=== PATIENT | female | born 1980 | race Caucasian/White ===

== ENCOUNTER 2019-05-21 05:42 | Inpatient (IN) | payer BC, SELFPAY ==
--- NOTE | 2019-05-05 15:11 | PC.NURSE ---
VERIFIED WITH OR SCHEDULE AND PATIENT--C/S WITH BILATERAL TUBAL LIGATION ON 05/28/19 AT 1200 PATIENT GIVEN REQUISITION FOR LAB DRAW ON 05/27/19
[2019-05-21] VITALS (61 sets, daily range): BP systolic 103–148; BP diastolic 68–96; PULSE 74–227; RESP 16–20; TEMP 36.1–37.3; O2SAT 97–100; BMI 34.7
[2019-05-21] MEDS: LACTATED RINGERS 1,000 ML 125 ML IV CONT (06:30)
--- NOTE | 2019-05-21 06:37 | PM.IMHP ---
H&P: HPI History of Present Illness Chief complaint: Contraction Narrative: Kathya Waters is a 38 year old female at 38w6d who presents in labor. Her is complicated by history of 2 prior c-sections. Her cervix was found to be 5 cm with a bulging bag of water. She endorses good FM. She denies any vaignal bleeding or LOF. Review of Systems Review of Systems: All systems reviewed & are unremarkable except as noted in HPI and below PMFSH Family History Family History (Updated 05/05/19 @ 14:55 by Jeramy Andino RN) Father High cholesterol Mother High cholesterol Grandparent Acute myocardial infarction Grandparent Heart disease Social History Social History Substance use: never Spiritual care concerns: No Meds Home Medications and Allergies Home Medications Medication Instructions Recorded Confirmed Type PNV cmb#95-ferrous fumarate-FA 1 tablet PO DAILY 05/05/19 05/05/19 History [] Allergies Allergy/AdvReac Type Severity Reaction Status Date / Time Penicillins Allergy Mild HIVES Verified 05/05/19 14:51 Vital Signs Vital Signs - 24 hr 05/21/19 06:31 Pulse Rate 104 H Blood Pressure 148/96 H Exam Const: General: comfortable and no acute distress Resp: Effort & Inspection: normal respiratory effort Auscultation: clear to auscultation bilaterally Cardio: Rate: regular rate Rhythm: regular rhythm GI: GI Palp: Yes Soft to palpation and No Guarding due to palpation present (GI) Auscultation: normal bowel sounds Other: Gravid uterus, size equal to dates : Manual OB Exam: dilated Skin: General skin exam: normal color Extrem: General: normal to inspection Assessment and Plan Assessment and plan (1) History of delivery affecting : Code(s): O34.219 - Maternal care for unspecified type scar from previous delivery Status: Acute Assessment and Plan: h/o 2 prior c/s plan for repeat c/s (2) Supervision of high risk in third trimester: Code(s): O09.93 - Supervision of high risk , unspecified, third trimester Status: Acute Additional Plan at 38w6d presents in labor ahuja IUP vertex FHT category 1 cvx 5cm
[2019-05-21 06:42] LABS: Basophils Percent Auto 0.2 % (0.2-1.2); Eosinophils Percent Auto 0.1 % (0-4.4); Hematocrit 37.1 % (37.0-47.0); Hemoglobin 12.5 g/dL (12.0-15.0); Immature Granulocyte Absolute 0.04 K/mm3 (0.00-0.031); Immature Granulocyte Percent A 0.4 % (0-0.5); Lymphocytes Absolute Auto 1.37 K/mm3 (0.9-3.2); Lymphocytes Percent Auto 12.9 % (18.3-44.2); Mean Corpuscular HGB Conc 33.7 g/dl (32-36); Mean Corpuscular Hemoglobin 31.6 pg (26-34); Mean Corpuscular Volume 93.7 fl (80-100); Monocytes Absolute Auto 0.5 K/mm3 (0.1-0.6); Monocytes Percent Auto 4.3 % (2.6-8.5); Neutrophils Absolute Auto 8.7 K/mm3 (1.3-6.7); Neutrophils Percent Auto 82.1 % (45.5-73.1); Platelet Count Result 167 k/mm3 (150-375); Red Blood Count 3.96 M/mm3 (4.2-5.4); Red Cell Distribution Width 13.4 % (11.5-14.5); White Blood Count 10.6 K/mm3 (4.5-10.0)
--- NOTE | 2019-05-21 06:44 | WPDANESEPPF ---
Anes - Initial Pre Proc Eval Procedure: Operation Date: 05/28/19 12:00 Proposed Procedures p Repeat Section with Bilateral Tubal Sterilization - Medhat Marie MD Date/Time: 05/21/19 06:44 Surgeon: Medhat Marie MD Pre Op Diagnosis: Contraction Patient Data Age: 38 Gender: F Height: Weight: Last Vital Signs Pulse 104 H 05/21/19 06:31 BP 148/96 H 05/21/19 06:31 Allergies Allergy/AdvReac Type Severity Reaction Status Date / Time Penicillins Allergy Mild HIVES Verified 05/05/19 14:51 Home Medications Medication Instructions Recorded Confirmed Type PNV cmb#95-ferrous fumarate-FA 1 tablet PO DAILY 05/05/19 05/05/19 History [] Laboratory Tests 05/21/19 05/21/19 05/21/19 06:35 06:35 06:40 WBC 10.6 K/mm3 H K/mm3 (4.5-10.0) RBC 3.96 M/mm3 L M/mm3 (4.2-5.4) Hgb 12.5 g/dL g/dL (12.0-15.0) Hct 37.1 % % (37.0-47.0) MCV 93.7 fl fl (80-100) MCH 31.6 pg pg (26-34) MCHC 33.7 g/dl g/dl (32-36) RDW 13.4 % % (11.5-14.5) Plt Count 167 k/mm3 k/mm3 (150-375) MPV 12.0 fl H fl (7.4-10.4) Immature Gran % (Auto) 0.4 % % (0-0.5) Neut % (Auto) 82.1 % H % (45.5-73.1) Lymph % (Auto) 12.9 % L % (18.3-44.2) [place] % (Auto) 4.3 % % (2.6-8.5) Eos % (Auto) 0.1 % % (0-4.4) Baso % (Auto) 0.2 % % (0.2-1.2) Lymph # (Auto) 1.37 K/mm3 K/mm3 (0.9-3.2) [place] # (Auto) 0.5 K/mm3 K/mm3 (0.1-0.6) Eos # (Auto) 0.0 K/mm3 K/mm3 (0-0.3) Baso # (Auto) 0.0 K/mm3 K/mm3 (0.0-0.1) Abs Immat Gran (auto) 0.04 K/mm3 H K/mm3 (0.00-0.031) Absolute Neuts (auto) 8.7 K/mm3 H K/mm3 (1.3-6.7) Absolute Nucleated RBC 0.0 K/mm3 K/mm3 (0.0-0.012) Nucleated RBC % 0.0 % % (0.0-0.2) Sodium Pending Potassium Pending Chloride Pending Carbon Dioxide Pending BUN Pending Creatinine Pending Estim Creat Clear Calc Pending Estimated GFR Pending Glucose Pending Calcium Pending Total Bilirubin Pending AST Pending ALT Pending Alkaline Phosphatase Pending Total Protein Pending Albumin Pending RPR Pending Patient hx anesthesia problems: none Family hx anesthesia problems: none [facility] Family History Family History Father High cholesterol Mother High cholesterol Grandparent Acute myocardial infarction Grandparent Heart disease Social History Social History Substance use: never Spiritual care concerns: No Anes - Eval Final PreProcedure Day of Procedure 05/21/19 06:44 Patient weight: obese Heart: regular rate and rhythm Lungs: clear to auscultation Airway: Mallampati scale class II Neurological: alert and oriented Last oral intake: >/= 8 hours ASA classification: II Emergent: yes Anesthetic plan: proceed Anesthesia type and monitoring: regional spinal and standard monitoring Informed Consent: The patient's anesthetic plan and its attendant risks and benefits were discussed with the patient/family/POA. Questions were solicited and answers provided to the satisfaction of the patient/family/POA.
[2019-05-21] MEDS: ceFAZolin 2 GM/D5W 50 ML 2 GM/50 ML BAG IVPB (06:52)
[2019-05-21 06:57] LABS: Alanine Aminotransferase 27 U/L (4-35); Albumin Level 3.7 g/dL (3.5-5.1); Alkaline Phosphatase 156 U/L (38-126); Aspartate Amino Transferase 25 U/L (14-36); Bilirubin,Total 0.2 mg/dL (0.2-1.3); Blood Urea Nitrogen 15 mg/dL (7-17); Calcium 9.5 mg/dL (8.4-10.2); Carbon Dioxide 19 mmol/L (22-30); Chloride 101 mmol/L (98-107); Estimated Glomerular Filt Rate > 60; Glucose 97 mg/dL (65-105); Potassium 4.1 mmol/L (3.4-5.0); Sodium 135 mmol/L (137-145)
[2019-05-21 07:53] LABS: Rapid Plasma Reagin Non-Reactive (NonReactive)
--- NOTE | 2019-05-21 08:02 | PM.PROC ---
Procedure Note - Detailed Date of procedure: 05/21/19 Pre-op diagnosis: Contraction labor prior section x2 Post-op diagnosis: same Procedure performed: repeat low transverse section Description of procedure: The patient was taken to the operating room where epidural anesthesia was found to be adequate. She was then prepped and draped in the usual sterile fashion in the dorsal supine position with a leftward tilt. The previous Pfannenstiel incision scar was removed using a scapel. A Pfannenstiel skin incision was then made with the scalpel and carried through to the underlying layer of fascia. Dense adhesions and fibrotic tissue were noted from the subcutaenous layer down to the level of the fascia. The fascia was then incised in the midline and the incision extended laterally with the Chua scissors. The superior aspect of the fascia was then grasped with the Silviano clamps, elevated, and the underlying rectus muscles dissected off bluntly and sharply. Attention was then turned to the inferior aspect of this incision which was unable to be dissected due to dense scar tissue. The rectus muscles were then in the midline, and the peritoneum identified, tented up, and entered sharply with the Metzenbaum scissors. The peritoneal incision was then extended superiorly and inferiorly with good visualization of the bladder. The peritoneum was the level of the inferior fascia was densely adherent. The dissection was not carried down inferiorly. The bladder blade was then inserted. The vesicouterine peritoneum was scarred and a bladder flap was unable to be made. The lower uterine segment incised in a low, transverse fashion with the scalpel. The uterine incision was then extended laterally with the bandage scissors. The bladder blade was removed and the infant?s head delivered atraumatically. The nose and mouth were suctioned with the bulb suction, and the remainder of the infant was delivered atraumatically. The cord was clamped and cut. The infant was handed off to the waiting pediatricians (staff). Cord gasses were sent. The placenta was then removed manually, the uterus exteriorized, and cleared of all clots and debris. The uterine incision was repaired with 0 vicryl in a running fashion. The uterus was returned to the abdomen. The uterus was then reinspected to ensure hemostasis as were all subfascial tissues. The peritoneum was re-approximated with a running 3-0 vicryl. The fascia was reapproximated with 0 vicryl in a running fashion. The subcutaneous tissue was reapproximated using 3-0 Vicryl in a running fashion. The skin was closed with 4-0 vicryl. The patient tolerated the procedure well. Sponge, lap and needle counts were correct times three. The patient was taken to the recovery room in stable condition. Anesthesia: spinal Surgeon: Yonny Wong MD Estimated blood loss (mL): 400 IV fluids (mL): 1,000 Urine output (mL): 150 Drains: No Packing: No Pathology: none sent Complications: No immediate complications Condition: stable Disposition: floor ( ) Findings: dense fibrotic scar tissue from the scin down to the fascia. Inferior fascia and peritoneum densely adherent
--- NOTE | 2019-05-21 09:53 | LDADM ---
This patient, Kathya Waters, was admitted to Labor/Delivery/Recovery 119 on 05/21/19 at 0542. Plans for labor, pain management and were discussed with patient. Patient/family oriented to hospital policies and general routines including ID bracelet, bed and alarms, visiting hours, pain management, procedures, bathroom and other care routines, personal items, smoking policy, room service/diet and guest tray routines, infant security routines, call light, and visiting hours. Patient/Family are encouraged to report perceived risks to care and to ask questions if they do not understand what they are told or what they should do. See OBIX for further documentation.
--- NOTE | 2019-05-21 10:33 | PC.NURSE ---
PT arrived on unit via stretcher accompanied by spouse and and taken to room 278. PT moved to bed via maxi air without difficulty. PT introductions made and plan of care discussed per post op c section, pain management, breast feeding, daily care activities. Welcome packet discussed and pt verbalized understanding of such care.
[2019-05-21] MEDS: IBUPROFEN 600 MG TABLET PO ×2 (14:14→20:35)
[2019-05-21] MEDS: DOCUSATE SODIUM 100 MG CAPSULE PO (14:14)
[2019-05-21] MEDS: SIMETHICONE 80 MG TAB.CHEW PO ×2 (14:14→20:34)
[2019-05-21] MEDS: ACETAMINOPHEN 325 MG TABLET 650 MG PO ×2 (14:15→20:35)
[2019-05-21] MEDS: LANOLIN (LANSINOH) 7.5 GM CREAM 1 APPLIC TOPICAL (14:16)
--- NOTE | 2019-05-21 15:00 | PC.NURSE ---
Consulted with patient, mother reports slight tenderness with nursing on other breast. Reviewed feeding cues, frequencies, duration of feedings, feeding elimination flow sheet, and signs of adequate intake. Demonstrated stimulation techniques to wake for feeding. Assisted with infant to breast. Reviewed positioning/alignment in cross cradle, holding breast in U hold and guided asymmetrical latch on. Discussed rational for each. Within a few attempts, infant was able to latch correctly. tends to keep her tongue up and not allowing correct latch. Advised mother to watch for tongue and place nipple on tongue. nursed eagerly, with steady draws and frequent swallowing noted. Reviewed signs of a correct latch, effective nursing and suck swallow ratio. Infant was able to maintain latch without discomfort to mother. Nipple care reviewed. Instructed mother to call out for RN assistance if she is unable to latch infant for feeding or she has discomfort with nursing. Instructed feeding should be initiated three hours from start of last feeding or if feeding cues are noted before. Mother voiced understanding of information shared.
[2019-05-22 04:45] VITALS: BP 125/86; PULSE 91; RESP 16; TEMP 36.6
[2019-05-22] MEDS: ACETAMINOPHEN 325 MG TABLET 650 MG PO ×4 (04:52→23:45)
[2019-05-22] MEDS: SIMETHICONE 80 MG TAB.CHEW PO ×6 (04:52→23:45)
[2019-05-22] MEDS: IBUPROFEN 600 MG TABLET PO ×4 (04:52→23:45)
[2019-05-22 05:38] LABS: Basophils Percent Auto 0.3 % (0.2-1.2); Eosinophils Absolute Auto 0.1 K/mm3 (0-0.3); Eosinophils Percent Auto 1.3 % (0-4.4); Hematocrit 33.2 % (37.0-47.0); Hemoglobin 10.8 g/dL (12.0-15.0); Immature Granulocyte Absolute 0.04 K/mm3 (0.00-0.031); Immature Granulocyte Percent A 0.5 % (0-0.5); Lymphocytes Absolute Auto 1.22 K/mm3 (0.9-3.2); Lymphocytes Percent Auto 16.3 % (18.3-44.2); Mean Corpuscular HGB Conc 32.5 g/dl (32-36); Mean Corpuscular Hemoglobin 31.7 pg (26-34); Mean Corpuscular Volume 97.4 fl (80-100); Mean Platelet Volume 11.8 fl (7.4-10.4); Monocytes Absolute Auto 0.4 K/mm3 (0.1-0.6); Monocytes Percent Auto 5.2 % (2.6-8.5); Neutrophils Absolute Auto 5.7 K/mm3 (1.3-6.7); Neutrophils Percent Auto 76.4 % (45.5-73.1); Platelet Count Result 125 k/mm3 (150-375); Red Blood Count 3.41 M/mm3 (4.2-5.4); Red Cell Distribution Width 13.8 % (11.5-14.5); White Blood Count 7.5 K/mm3 (4.5-10.0)
[2019-05-22 08:05] VITALS: BP 139/87; PULSE 85; RESP 16; TEMP 36.6; O2SAT 98
--- NOTE | 2019-05-22 08:44 | P.PNOB_ITS ---
OB - PN: Subj Subjective Date/time seen: 05/22/19 08:44 Narrative: Pain OK. Voiding. Tolerating diet. OB - PN: Obj Data Labs CBC & Chem 7: 05/22/19 04:51 05/21/19 06:40 Labs: Laboratory Results - last 24 hr 05/22/19 04:51 WBC 7.5 RBC 3.41 L Hgb 10.8 L Hct 33.2 L MCV 97.4 MCH 31.7 MCHC 32.5 RDW 13.8 Plt Count 125 L MPV 11.8 H Immature Gran % (Auto) 0.5 Neut % (Auto) 76.4 H Lymph % (Auto) 16.3 L [place] % (Auto) 5.2 Eos % (Auto) 1.3 Baso % (Auto) 0.3 Lymph # (Auto) 1.22 [place] # (Auto) 0.4 Eos # (Auto) 0.1 Baso # (Auto) 0.0 Abs Immat Gran (auto) 0.04 H Absolute Neuts (auto) 5.7 Absolute Nucleated RBC 0.0 Nucleated RBC % 0.0 OB - PN A/P Plan Comments: A: POD#1, doing well. P: Routine care. Exam Psych: Other: AVSS I/O OK ABD soft, nontender, fundus firm. Incision c/d/i. EXT nontender
[2019-05-22] MEDS: MULTIVIT/MIN/PREN/FOL AC/IRON TABLET 1 TAB PO (08:59)
[2019-05-22] MEDS: DOCUSATE SODIUM 100 MG CAPSULE PO ×2 (08:59→17:43)
--- NOTE | 2019-05-22 12:44 | WPDANLDNPN2 ---
Anes-Prog Note L&D-Neuraxial Date/Time: 05/22/19 12:44 Neuraxial medications: intrathecal PF morphine Opiod-related complaints: none Patient feedback: Patient satisfied with post-operative pain management.
--- NOTE | 2019-05-22 12:44 | WPDANLDPN2 ---
Anes-Prog Note L&D Date/Time: 05/22/19 12:44 Comfortable throughout: section Neuraxial method: spinal Epidural/Spinal procedure site: clean & non-tender Neuro status: Neuro function grossly intact. Cardiovascular status: normal Respiratory status: normal Airway patency: baseline Mental status: baseline Post-Op hydration status: normal Vital Signs: Last Vital Signs Temp 36.6 C 05/22/19 08:05 Pulse 85 05/22/19 08:05 Resp 16 05/22/19 08:05 BP 139/87 05/22/19 08:05 Pulse Ox 98 05/22/19 08:05 I/O: Intake & Output 05/21/19 05/22/19 05/22/19 23:59 07:59 15:59 Intake Total 2000 1000 1000 Output Total 950 1200 400 Balance 1050 -200 600 Post-procedural complaints: none Patient feedback: Patient satisfied with anesthetic care.
[2019-05-22 20:35] VITALS: BP 132/84; PULSE 113; RESP 16; TEMP 36.9
[2019-05-23] MEDS: SIMETHICONE 80 MG TAB.CHEW PO ×4 (05:47→23:40)
[2019-05-23] MEDS: IBUPROFEN 600 MG TABLET PO ×4 (05:47→23:40)
[2019-05-23] MEDS: ACETAMINOPHEN 325 MG TABLET 650 MG PO ×4 (05:48→23:40)
[2019-05-23 07:30] VITALS: BP 141/89; PULSE 82; RESP 16; TEMP 36.4; O2SAT 98
[2019-05-23] MEDS: DOCUSATE SODIUM 100 MG CAPSULE PO (11:15)
[2019-05-23] MEDS: MULTIVIT/MIN/PREN/FOL AC/IRON TABLET 1 TAB PO (11:15)
--- NOTE | 2019-05-23 12:05 | PM.OBPNVD ---
OB - PN: Subj Subjective Date/time seen: 05/23/19 12:05 Narrative: Pain OK. OB - PN: Obj Data Labs CBC & Chem 7: 05/22/19 04:51 05/21/19 06:40 OB - PN A/P Plan Comments: A: POD#2, doing well. P: Routine care. Exam Psych: Other: AVSS ABD soft, nontender, fundus firm. Incision c/d/i. EXT nontender
--- NOTE | 2019-05-23 12:07 | PM.OBDSVD ---
DS: Diagnosis Admitting Diagnosis Admitting Diagnosis: 1) labor 2) prior Discharge Diagnosis (1) Status post repeat low transverse section: Code(s): Z98.891 - History of uterine scar from previous surgery Status: Acute OB - DS: Summary OB Procedures : None OB Procedures Intrapartum: OB Procedures: : None Peripartum Data Procedures: Procedures Operation Date: 05/21/19 07:00 Actual Procedures Side Surgeon p Section Not Applicable Yonny Wong MD Operation Date: 05/28/19 12:00 <No data on this case meets the specified criteria> Discharge Plan Discharge Attending physician on discharge: Medhat Marie Discharging Clinician: Medhat Marie Patient Disposition: Home, Self-Care Activity: may shower, may drive after 2 weeks and pelvic rest Diet: regular Wound Care Instructions: incision open to air Discharge Instructions: Call or return if temperature above 100.4? F, increased abdominal pain, increased vaginal bleeding or any new problems. Stand Alone Forms: General Discharge Information Follow-up/Referrals: Medhat Marie MD [Physician] - (4 weeks) Discharge Medications: New ibuprofen 600 mg tablet 600 mg PO Q6H PRN (Reason: cramps) Qty: 30 RF: 0 hydrocodone-acetaminophen [[place]ro[place]] 5-325 mg tablet 1 - 2 tablet PO Q6H PRN (Reason: pain) Qty: 20 RF: 0 No Action PNV cmb#95-ferrous fumarate-FA [] 28 mg iron- 800 mcg Tablet 1 tablet PO DAILY RF: 0 Date of admission: 05/21/19 05:42 Primary Care Provider: UNKNOWN,DOCTOR Admitting Provider: Medhat Marie Attending physician on admission: Medhat Marie
--- NOTE | 2019-05-23 12:15 | PC.NURSE ---
Observed mother is able to independently latch with appropriate positioning/alignment. She denies any nipple discomfort, is feeding as required and waking infant to feed if needed. is currently meeting outcomes for weight, output, jaundice and feeding frequencies.
[2019-05-23 19:00] VITALS: BP 135/90; PULSE 85; RESP 16; TEMP 36.7; O2SAT 100
--- NOTE | 2019-05-23 19:00 | PC.NURSE ---
Patient viewed the discharge video Mother & Baby Care, The First Two Weeks . Patient was given the opportunity and encouraged to ask questions. Patient verbalized understanding of information shared and has been given the mother/baby guide for home reference.
[2019-05-24] MEDS: SIMETHICONE 80 MG TAB.CHEW PO ×2 (05:21→12:09)
[2019-05-24] MEDS: ACETAMINOPHEN 325 MG TABLET 650 MG PO ×2 (05:21→12:09)
[2019-05-24] MEDS: IBUPROFEN 600 MG TABLET PO ×2 (05:21→12:09)
[2019-05-24 08:10] VITALS: BP 145/94; PULSE 95; RESP 18; TEMP 36.6
[2019-05-24] MEDS: MULTIVIT/MIN/PREN/FOL AC/IRON TABLET 1 TAB PO (08:14)
[2019-05-24] MEDS: DOCUSATE SODIUM 100 MG CAPSULE PO (08:14)
--- NOTE | 2019-05-24 09:21 | PM.OBPNVD ---
OB - PN: Subj Subjective Date/time seen: 05/24/19 09:21 Narrative: Pain OK. Tolerating diet. Would like to go home. OB - PN: Obj Data Labs CBC & Chem 7: 05/22/19 04:51 05/21/19 06:40 OB - PN A/P Plan Comments: A: POD#3, doing well. P: Home to f/u 4 weeks. Exam Psych: Other: AVSS ABD soft, nontender, fundus firm. Incision c/d/i. EXT nontender
[2019-05-26 09:21] VITALS: BP 135/81; PULSE 94; RESP 18; TEMP 36.7
== END 2019-05-24 15:10 | disposition home or self-care (01) | DRG 788 ==
LOC: ANHLDR 10:04 → ANHOB2 10:41
PROVIDERS: Admitting Provider Student in an Organized Health Care Education/Training Program; Visit Provider Obstetrics & Gynecology
PROC: 10D00Z1 Extraction of Products of Conception, Low, Open Approach (ICD-10-PCS; CPT 59514; principal; 2019-05-21 07:00)
DX: O34.211 Maternal care for low transverse scar from previous cesarean delivery (principal); Z3A.38 38 weeks gestation of pregnancy; Z37.0 Single live birth; Z23 Encounter for immunization; O77.0 Labor and delivery complicated by meconium in amniotic fluid
CPT/HCPCS: 36415; 80053; 85025; 86592; 86850; 86900; 86901; A9270; J0131; J0690; J2274; J2590; J7120

== ENCOUNTER 2022-06-11 08:03 | Emergency (ER) | payer BC, SELFPAY ==
--- NOTE | 2022-06-11 08:17 | ED.URI ---
HPI - URI/Sore Throat General Chief Complaint: Upper Respiratory Infection Stated Complaint: sore throat History of Present Illness HPI Narrative: 41 y/o female presented for c/o feeling unwell for about 2 days. Started with sore throat yesterday. Endorses mild sinus congestion and cough. Denies sob, wheezing, n/v/d/f/c. Took Cold& sinus med for symptoms. Denies sick contacts. MD elicited complaint: sore throat Related Data Home Medications Medication Instructions Recorded Confirmed No Home Medications 06/11/22 06/11/22 Allergies Allergy/AdvReac Type Severity Reaction Status Date / Time Penicillins Allergy Mild HIVES Verified 06/11/22 08:25 Review of Systems Review of Systems: CONSTITUTIONAL: Denies fever, chills, or sweats. EYES: Denies visual changes, redness, or discharge. ENT: Denies rhinorrhea, congestion, or otalgia. CARDIOVASCULAR: Denies chest pain, palpitations, or edema. RESPIRATORY: Denies dyspnea. GASTROINTESTINAL: Denies abdominal pain, nausea, vomiting, or diarrhea. SKIN: Denies rash, itching, or wounds. MUSCULOSKELETAL: Denies back pain, joint pain. NEUROLOGIC: Denies headache [facility] Past Medical History Medical History (Updated 06/11/22 @ 08:39 by Sherrell Reinoso APRN) No pertinent past medical history Family History Family History Father High cholesterol Mother High cholesterol Grandparent Acute myocardial infarction Grandparent Heart disease Social History Social History Smoking status: Never smoker Substance use: never Spiritual care concerns: No Exam Narrative: GENERAL: mildly Ill-appearing, no acute distress. EYES: conjunctivae clear ENT: Mucous membranes moist. TMs pearly roman with normal light reflex bilaterally; no tragal tenderness. Oropharynx erythematous without lesions. Tonsils absent. No drooling, no hoarseness, no trismus, uvula midline. No tripod positioning, hot potato voice, or soft palate swelling. NECK: Supple. No lymphadenopathy CHEST: Clear to auscultation, breath sounds equal. No respiratory distress, speaks in full sentences. HEART: Regular rate and rhythm. No murmur heard. SKIN: Warm, dry, no rash. NEURO: Alert and oriented x3. Course Course Emergency Course: Patient is aware of diagnosis, understands and agrees to treatment plan. Anticipatory guidance given. Patient agrees to follow-up as directed and is aware of reasons to seek care at the emergency department. Portions of this record may have been created with voice recognition software Level of Care: Express Care Visit Vital Signs Vital signs: Vital Signs Temperature 97.3 F L 06/11/22 08:20 Pulse Rate 100 06/11/22 08:20 Respiratory Rate 16 06/11/22 08:20 Blood Pressure 103/75 06/11/22 08:20 Pulse Oximetry 99 06/11/22 08:20 Temperature 97.3 F L 06/11/22 08:20 Pulse Rate 100 06/11/22 08:20 Respiratory Rate 16 06/11/22 08:20 Blood Pressure 103/75 06/11/22 08:20 Pulse Oximetry 99 06/11/22 08:20 MDM - URI/Sore Throat MDM Narrative Medical decision making narrative: strep result reviewed with pt. Advise supportive treatments. Patient is appropriate for outpatient treatment and follow-up. Differential Diagnosis Differential diagnosis: Likely upper respiratory infection, viral infection and pharyngitis Discharge Plan Discharge Clinical Impression: Viral infection Patient Disposition: Home, Self-Care Condition: Stable Instructions: Pharyngitis (ED) Additional Instructions: Rapid strep swab was negative today You will be notified in a few days if the culture comes back positive for strep, and appropriate antibiotics will be called in at that time. if symptoms are due to a viral illness, it is not treated with antibiotics. Viral symptoms can be present for up to 10-14 days. Recommend Flonase spray and
[2022-06-11 08:20] VITALS: BP 103/75; PULSE 100; RESP 16; TEMP 36.3; O2SAT 99
== END 2022-06-11 08:35 | disposition home or self-care (01) ==
PROVIDERS: Emergency Provider Nurse Practitioner Family; PCP Family Medicine
DX: B34.9 Viral infection, unspecified (principal)
CPT/HCPCS: 87081; 87880; 99203; G0463

== ENCOUNTER 2023-02-16 09:06 | Emergency (ER) | payer BC, SELFPAY ==
--- NOTE | ~2023-02-16 | XR_ITS ---
EXAMINATION: XR elbow RT min 3V INDICATION: Right elbow pain TECHNIQUE: Four views of the right elbow are obtained. COMPARISON: None available FINDINGS: There is a subtle transverse lucency of the radial head. Bone alignment is normal. There is an elbow joint effusion. IMPRESSION: 1. Subtle transverse lucency of the radial head, consistent with nondisplaced fracture. Reviewed, dictated and finalized at location [facility]. R [employer] [employer] IMPRESSION: 1. Subtle transverse lucency of the radial head, consistent with nondisplaced f racture.
[2023-02-16 09:15] VITALS: BP 108/80; PULSE 77; RESP 16; TEMP 36.9; O2SAT 99
--- NOTE | 2023-02-16 09:20 | ED.UPPEXIN ---
HPI - Extremity Injury (Upper) General Chief Complaint: Extremity Injury, Upper Stated Complaint: Right Arm Injury Time Seen by Provider: 02/16/23 09:20 Source: patient, RN notes reviewed and old records reviewed Mode of arrival: ambulatory Limitations: no limitations History of Present Illness HPI narrative: 42-year-old female presents to the [facility] with right elbow pain post fall. Patient states that she was playing kickball when she fell on the concrete on her right elbow. Decreased range of motion. Currently wearing a sling Full range of motion of the wrist. Strong gold leaf roller noted. Positive radial pulse. Capillary refill under 2 seconds Onset (ago): day(s) (1) Treatments prior to arrival: NSAIDS and other (Sling) Related Data Home Medications Medication Instructions Recorded Confirmed No Home Medications 06/11/22 06/11/22 Allergies Allergy/AdvReac Type Severity Reaction Status Date / Time Penicillins Allergy Mild HIVES Verified 06/11/22 08:25 Review of Systems Review of Systems: All systems reviewed & are unremarkable except as noted in HPI and below Constitutional: Constitutional: Reports no additional constitutional complaints Eyes: Eyes: Reports no additional eye complaints ENT: Reports system reviewed and no additional complaints, except as documented Cardiovascular: Cardiovascular: Reports no additional cardiovascular complaints, Denies chest pain and Denies dyspnea Respiratory: Respiratory: Reports no additional respiratory complaints, Denies chest congestion, Denies cough and Denies dyspnea Gastrointestinal: Gastrointestinal: Reports no additional gastrointestinal complaints, Denies abdominal pain, Denies nausea and Denies vomiting Musculoskeletal: Musculoskeletal: Reports as per HPI, Reports arthralgias, Reports joint swelling and Reports limited range of motion Integumentary/Breasts: Skin/Breast: Reports system reviewed and no additional complaints, except as docu Neurologic: Reports system reviewed and no additional complaints, except as documented Psychiatric: Psychiatric: Reports no additional psychiatric complaints Allergic/Immunologic: Allergic/Immunologic: Reports no additional allergic/immunologic complaints PMF Past Medical History Medical History No pertinent past medical history Family History Family History Father High cholesterol Mother High cholesterol Grandparent Acute myocardial infarction Grandparent Heart disease Social History Social History Smoking status: Never smoker Substance use: never Spiritual care concerns: No Comments At the time of my signature, I reviewed and agree with the nursing past medical, surgical, social, and family history. There is no relevant family history pertinent to the patient complaint. Exam Const: General: cooperative, healthy appearing, comfortable, no acute distress, well developed, alert and well nourished Nutritional Appearance: well nourished Orientation/consciousness: patient oriented x3 Limitations: no limitations HENMT: Head: normal to inspection Ears: hearing grossly normal bilaterally and external ears normal Face/Nose/Sinus: Normal external nose present, Normal nares present, Normal nasal mucous membranes and turbinates present, normal facial exam and face symmetric Face and sinus: normal facial exam and face symmetric Eyes: General: appearance normal, both eyes and all related structures Alignment and Position: alignment normal Periorbital: periorbital findings normal Pupils: Equal, round and reactive pupils present EOM: EOMs intact bilaterally Neck: Neck: normal visual inspection, full ROM, no lymphadenopathy and no meningeal signs Chest: Chest palpation & inspection: normal inspection of the chest Resp: Effort & Inspection: normal respir
== END 2023-02-16 10:30 | disposition home or self-care (01) ==
PROVIDERS: Emergency Provider Nurse Practitioner; PCP Family Medicine
DX: S52.124A Nondisplaced fracture of head of right radius, initial encounter for closed fracture (principal); W19.XXXA Unspecified fall, initial encounter; Y93.6A Activity, physical games generally associated with school recess, summer camp and children
CPT/HCPCS: 29105; 73080; 99214; G0463

== ENCOUNTER 2023-03-05 10:01 | Outpatient (CLI) | payer BC, SELFPAY ==
--- NOTE | ~2023-03-05 | MM_ITS ---
EXAMINATION: MM screening gina BI w lisa HISTORY: Screening TECHNIQUE: Craniocaudal and mediolateral oblique 3-D tomosynthesis images were obtained and synthetic 2-D images were generated. CAD analysis was submitted and interpreted. COMPARISON: No prior mammogram is available for comparison at this institution. BREAST PARENCHYMAL COMPOSITION: The breasts are heterogeneously dense, which may obscure small masses . FINDINGS: There is no evidence of suspicious mass, calcification, or architectural distortion to sugg est malignancy in either breast. There has been no suspicious interval change. IMPRESSION: 1. No mammographic evidence of malignancy. 2. Recommend routine screening mammography in one year. BI-RADS Category 1: Negative Reviewed, dictated and finalized at location [facility] [employer]
== END 2023-03-05 10:02 | disposition home or self-care (01) ==
PROVIDERS: PCP Family Medicine; Visit Provider Obstetrics & Gynecology
DX: Z12.31 Encounter for screening mammogram for malignant neoplasm of breast (principal)
CPT/HCPCS: 77063; 77067

== ENCOUNTER 2024-05-07 08:04 | Outpatient (CLI) | payer BC, SELFPAY ==
--- NOTE | ~2024-05-07 | MM_ITS ---
EXAMINATION: MM screening gina BI w lisa HISTORY: Screening TECHNIQUE: Craniocaudal and mediolateral oblique 3-D tomosynthesis images were obtained and synthetic 2-D images were generated. CAD analysis was submitted and interpreted. COMPARISON: 03/05/2023 BREAST PARENCHYMAL COMPOSITION: Not dense: There are scattered areas of fibroglandular density. FINDINGS: There is no evidence of suspicious mass, calcification, or architectural distortion to sugg est malignancy in either breast. There has been no suspicious interval change. IMPRESSION: 1. No mammographic evidence of malignancy. 2. Recommend routine screening mammography in one year. BI-RADS Category 1: Negative Reviewed, dictated and finalized at location [] TE TECHNICIAN
--- OUTSIDE RECORDS SUMMARY | 2024-05-07 08:21 | XMS_ITS | Clinical Summary ---
Author Organization [facility] Address [address] [place] [address] Care Team Providers Care Senior Supply Chain Analyst Name Role Phone Unavailable Primary Care Provider Unavailabl e Source Comments [facility],non-owned Affiliates and Associated Physician Practices is amultiple site organization consisting of ambulatory clinics and hospital sitesin [place], [place], [place] and [place]. This disclosure is being madepursuant to the Care Everywhere program and may not contain all information available regarding this patient. Last updated 17.[facility] Social History Tobacco Use Types Packs/Day Years Used Date Smoking Tobacco: Never Assessed Sex and Gender Information Value Date Recorded Sex Assigned at Not on file Gender Identity Not on file Sexual Orientation Not on file Plan of Treatment Health Maintenance Due Date Last Done Comments LIPID TESTING 1982 MAMMOGRAM 1982 PAP SMEAR 1982 HIV SCREENING 1997 HEPATITIS C SCREENING 10/17/2000 DTAP/TDAP/TD VACCINES (1 - Tdap) 2001 HEPATITIS B VACCINE (1 of 3 - 19+ 3-dose series) 2001 COVID-19 VACCINE (2023-2 5 season) 2023 INFLUENZA VACCINE (#1) 2023 DEPRESSION SCREENING 03/26/2024 ZOSTER VACCINE (1 of 2) 2032 HIB VACCINE Aged Out No longer eligi ble based on patient's age to complete this topic HPV VACCINE Aged Out No longer eligi ble based on patient's age to complete this topic MENINGOCOCCAL (Group B) VACCINE Aged Out No longer eligible based on patient's age to complete this topic MENINGOCOCCAL VACCINE Aged Out No asmita kaleigh eligible based on patient's age to complete this topic PNEUMOCOCCAL VACCINE Aged Out No long er eligible based on patient's age to complete this topic
--- OUTSIDE RECORDS SUMMARY | 2024-05-07 08:21 | XMS_ITS | Encounter Summary ---
Author Organization [facility] Address [address] [place] [address] Care Team Providers Care Life Scientists Name Role Phone Unavailable Primary Care Provider Unavailabl e Encounter Details Date Type Department Care Team (Late st Contact Info) Description 01/07/2020 Lab Requisition [facility] [address] [place] [place] [phone] Chiquis Wray MD [address] [place] [address] Social History Tobacco Use Types Packs/Day Years Used Date Smoking Tobacco: Never Assessed Sex and Gender Information Value Date Recorded Sex Assigned at Not on file Gender Identity Not on file Sexual Orientation Not on file documented as of this encounter Plan of Treatment Not on file documented as of this encounter Procedures Procedure Name Priority Date/Time Associated Diagnosis Comments DERMATOPATHOLOGY Routine 01/06/2020 12:0 0 AM CDT documented in this encounter Results * DERMATOPATHOLOGY (01/06/2020 12:00 AM CDT) Case Report Dermatopathology Report Case: [id number] Authorizing Provider: Chiquis Wray MD Collected: 01/06/2020 12:00 AM Ordering Location: [facility] Received: 01/07/2020 12:29 PM Pathologist: Larissa Donahue MD Specimen: Skin, right umbilicus 0 1:25 PM CDT DERMATOPATHOLOGY LABORATORY Final Diagnosis Specimen A. 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 The specimen consists of a shave biopsy measuring 7x5x1 mm. Jar 0. 0 1:25 PM CDT DERMATOPATHOLOGY LABORATORY Microscopic Description Specimen A. SKIN, right umbilicus: This is a junctional nevus. There is melanin pigment in the stratum corneum. There is architectural disorder characterized by a lentiginous proliferation of melanocytes between irregular nests of cells along the dermal-epidermal junction. There is underlying fibroplasia of the papillary dermis. (Junctional Samuel's Nevus or Junctional Dysplastic Nevus) 0 1:25 PM CDT DERMATOPATHOLOGY LABORATORY Disclaimer An external and internal positive and negative controls are appropriate for the histochemical, immunohistochemical and immunofluorescence stain(s) in this case (if any), except where stated explicitly. The performance characteristics of the stain(s) cited in this report were developed and its performance characteristic determined by the Dermatopathology Laboratory at [facility], directed by Dr. Joann Turk. These tests need not be, and therefore are not, approved by the [place] Food and Drug Administration. The tests are used for clinical purposes. Billing Codes Specimen Charges Stain Charges 53821 1 0 1:25 PM CDT DERMATOPATHOLOGY LABORATORY Embedded Images 0 1:25 PM CDT DERMATOPATHOLOGY LABORATORY Pathology/Cytolog y TISSUE SPECIMEN FROM SKIN / Unknown 01/06/2020 01/07/2020 12:29 PM CDT Chiquis Wray MD LAB - PATHOLOGY/CYT OLOGY ORDERABLES DERMATOPATHOLOGY LABORATORY [facility] - Department of Dermatology [address], [address] [phone] documented in this encounter Visit Diagnoses Not on filedocumented in this encounter
--- OUTSIDE RECORDS SUMMARY | 2024-05-07 08:21 | XMS_ITS | Patient Health Summary ---
Author Organization [facility] Address [address] [place] [address] Care Team Providers Care Water Meter Installer Name Role Phone Unavailable Primary Care Provider Unavailabl e Note from [facility] [place] [facility] [place],non-owned Affiliates and Associated Physician Practices is amultiple site organization consisting of ambulatory clinics and hospital sitesin [place], [place], [place] and [place]. This disclosure is being madepursuant to the Care Everywhere program and may not contain all information available regarding this patient. Last updated 17.[facility] Social History Tobacco Use Types Packs/Day Years Used Date Smoking Tobacco: Never Assessed Sex and Gender Information Value Date Recorded Sex Assigned at Not on file Gender Identity Not on file Sexual Orientation Not on file Procedures * DERMATOPATHOLOGY(Performed 01/06/2020) Results * DERMATOPATHOLOGY (01/06/2020 12:00 AM CDT) Case Report Dermatopathology Report Case: [id number] Authorizing Provider: Chiquis Wray MD Collected: 01/06/2020 12:00 AM Ordering Location: [facility] Received: 01/07/2020 12:29 PM Pathologist: [...] characteristic determined by the Dermatopathology Laboratory at [facility], directed by Dr. Joann Turk. These tests need not be, and therefore are not, approved by the [place] Food and Drug Administration. The tests are used for clinical purposes. Billing Codes Specimen Charges Stain Charges 53266 1 0 1:25 PM CDT DERMATOPATHOLOGY LABORATORY Embedded Images 0 1:25 PM CDT DERMATOPATHOLOGY LABORATORY Pathology/Cytolog y TISSUE SPECIMEN FROM SKIN / Unknown 01/06/2020 01/07/2020 12:29 PM CDT Chiquis Wray MD LAB - PATHOLOGY/CYT OLOGY ORDERABLES DERMATOPATHOLOGY LABORATORY [facility] - Department of Dermatology [facility] [address] [place] [address], [address] [phone]
--- OUTSIDE RECORDS SUMMARY | 2024-05-07 08:21 | XMS_ITS | Referral Summary ---
Author Organization [facility] Address [address] [place] [address] Care Team Providers Care Paving Inspector Name Role Phone Unavailable Primary Care Provider Unavailabl e Source Comments [facility],non-owned Affiliates and Associated Physician Practices is amultiple site organization consisting of ambulatory clinics and hospital sitesin [place], [place], [place] and [place]. This disclosure is being madepursuant to the Care Everywhere program and may not contain all information available regarding this patient. Last updated 17.[facility] Social History Tobacco Use Types Packs/Day Years Used Date Smoking Tobacco: Never Assessed Sex and Gender Information Value Date Recorded Sex Assigned at Not on file Gender Identity Not on file Sexual Orientation Not on file Plan of Treatment Not on file
== END 2024-05-07 08:05 | disposition home or self-care (01) ==
LOC: ANHIMG 08:07
PROVIDERS: Visit Provider Obstetrics & Gynecology
DX: Z12.31 Encounter for screening mammogram for malignant neoplasm of breast (principal)
CPT/HCPCS: 77063; 77067